=== PATIENT | female | born 2000 | race Caucasian/White ===

== ENCOUNTER → 2022-01-12 12:41 | Outpatient (CLI) | payer OTHER, SELFPAY ==
--- NOTE | ~2022-01-12 | US_ITS ---
EXAMINATION: US transvaginal DATE: 01/12/2022 13:16 INDICATION: Irregular menstrual cycle TECHNIQUE: Multiple endovaginal sonographic images of the pelvis were obtained. COMPARISON: None. FINDINGS: The uterus measures 7.8 x 3.3 x 4.6 cm. The endometrial complex measures 9 mm in thickness. Linear e chogenic and shadowing IUD in expected position within the endometrial canal. The right ovary measure s 3.4 x 2.0 x 3.9 cm. The left ovary measures 4.3 x 2.2 x 3.6 cm. Multiple small anechoic follicles a re seen at both ovaries with larger 1.2 cm dominant anechoic follicle at the left ovary. Vascular carolyn w identified at both ovaries on color Doppler. There is no free fluid in the pelvis. IMPRESSION: 1. Normal pelvic ultrasound with IUD in expected position within the endometrial canal. Reviewed, dictated and finalized at location B. IMPRESSION: 1. Normal pelvic ultrasound with IUD in expected position within the endometria l canal.
== END ==
DX: N92.6 Irregular menstruation, unspecified (principal)
CPT/HCPCS: 76830